=== PATIENT | male | born 1955 | race Caucasian/White ===

== ENCOUNTER 2019-07-05 10:21 | Inpatient (IN) | payer MEDICARE, MEDICAID ==
[~2019-07-05] VITALS: Ht 170.2 cm; Wt 83.5 kg
[2019-07-05] MEDS ORDERED: IBUPROFEN 600MG TABLET PO STA (11:17)
[2019-07-05] MEDS ORDERED: LORAZEPAM 1MG TABLET PO ONE ×2 (11:30→11:45)
[2019-07-05 15:13] LABS: EOSINOPHILS % 1.9 % (0.0-5.0); HEMATOCRIT. 47.2 % (42.0-52.0); HEMOGLOBIN. 16.2 g/dL (14.0-18.0); LYMPHOCYTES % 30.9 % (20.0-50.0); MEAN CORPUSCULAR VOLUME 87.2 fL (80.0-94.0); MEAN PLATELET VOLUME 7.2 fl (7.4-10.4); MONOCYTES % 5.6 % (2.0-8.0); NEUTROPHILS % 60.6 % (40.0-76.0); PLATELET 295 x1000/uL (130-400); RED BLOOD CELL COUNT 5.41 mill/uL (4.7-6.1); RED CELL DISTRIBUTION WIDTH 14.9 % (11.6-14.6)
[2019-07-05 15:16] LABS: CHLORIDE 111 mEq/L (98-107)
[2019-07-05] MEDS ORDERED: NITROGLYCERIN 0.4MG TABLET SL SL ONE (16:15)
[2019-07-05] MEDS ORDERED: ASPIRIN 325MG EC TABLET PO ONE (16:15)
[2019-07-05 21:37] VITALS: BP 133/77
[2019-07-05 22:00] VITALS: BP 139/69
[2019-07-05] MEDS ORDERED: LORAZEPAM 1MG TABLET PO PRN (22:45)
[2019-07-05] MEDS ORDERED: ACETAMINOPHEN 325MG TABLET PO PRN (22:45)
[2019-07-05] MEDS ORDERED: MAGNESIUM/ALUMINUM HYDROXIDE/SIMETHICONE 30ML UDC PO PRN (22:45)
[2019-07-05] MEDS ORDERED: ONDANSETRON HCL 4MG/2ML INJ IV PRN (22:45)
[2019-07-05] MEDS ORDERED: CLONIDINE 0.1MG TABLET PO PRN (22:45)
[2019-07-05] MEDS: DIPHENHYDRAMINE 50MG/ML VIAL IV PRN (23:44)
[2019-07-06] VITALS: BP 118/64
[2019-07-06] MEDS ORDERED: FLUT1BLS9 IH (00:02)
[2019-07-06] MEDS ORDERED: TERA2CAP4 MT (00:02)
[2019-07-06] MEDS ORDERED: ALPR0.25 MT (00:02)
[2019-07-06] MEDS ORDERED: MIRT45TA83 MT (00:02)
[2019-07-06 04:00] VITALS: BP 101/65
[2019-07-06] MEDS ORDERED: SODIUM CHLORIDE 0.9% INJ 3ML FLUSH IVF SCH (06:00)
[2019-07-06 07:19] LABS: BASOPHILS % 1.1 % (0.0-2.0); EOSINOPHILS % 4.3 % (0.0-5.0); HEMATOCRIT. 42.4 % (42.0-52.0); HEMOGLOBIN. 14.3 g/dL (14.0-18.0); LYMPHOCYTES % 37.2 % (20.0-50.0); MEAN CORPUSCULAR HEMOGLOBIN 29.5 pg (28.0-32.0); MEAN CORPUSCULAR VOLUME 87.6 fL (80.0-94.0); MEAN PLATELET VOLUME 7.3 fl (7.4-10.4); MONOCYTES % 7.3 % (2.0-8.0); NEUTROPHILS % 50.1 % (40.0-76.0); PLATELET 261 x1000/uL (130-400); RED BLOOD CELL COUNT 4.84 mill/uL (4.7-6.1)
[2019-07-06 07:37] LABS: CHLORIDE 111 mEq/L (98-107)
[2019-07-06] MEDS ORDERED: OMEPRAZOLE 20MG CAPSULE EXTENDED RELEASE PO SCH (07:40)
[2019-07-06 07:43] LABS: PHOSPHORUS 2.9 mg/dL (2.5-4.9)
[2019-07-06 07:44] LABS: LDL CHOLESTEROL 133 mg/dL (5-100)
[2019-07-06 07:46] LABS: HDL CHOLESTEROL 45 mg/dL (40-59)
[2019-07-06 08:00] VITALS: BP 150/80
[2019-07-06] MEDS: DIPHENHYDRAMINE 50MG/ML VIAL IV PRN (10:35)
[2019-07-06 14:39] LABS: *AMPHETAMINES SCREEN URINE NEGATIVE (NEGATIVE); *BARBITURATES SCREEN URINE NEGATIVE (NEGATIVE); *BENZODIAZEPINES SCREEN URINE PRESUMTIVE POSITIVE (NEGATIVE); *COCAINE SCREEN URINE NEGATIVE (NEGATIVE)
[2019-07-06 14:40] LABS: CANNABINOID URINE SCREEN NEGATIVE (NEGATIVE); METHADONE URINE SCREEN NEGATIVE (NEGATIVE); OPIATES URINE SCREEN NEGATIVE (NEGATIVE); PHENCYCLIDINE URINE SCREEN NEGATIVE (NEGATIVE)
[2019-07-06 21:45] VITALS: BP 122/82
== END 2019-07-06 22:15 | disposition home or self-care (01) | DRG 206 ==
LOC: ER 10:27 → EDBEDREQ 17:06 → ENRESERV 20:26 → 7WST 20:40
PROVIDERS: ADMIT Internal Medicine; ATTEND Internal Medicine
DX: M94.0 Chondrocostal junction syndrome [Tietze] (principal); R07.89 Other chest pain; R51 Headache; F41.1 Generalized anxiety disorder; F32.9 Major depressive disorder, single episode, unspecified; Z79.899 Other long term (current) drug therapy
CPT/HCPCS: 36415; 71045; 80048; 80053; 80061; 80305; 83735; 83880; 84100; 84484; 85025; 93005; 93970; 99285; J1200